=== PATIENT | female | born 1995 | race Caucasian/White ===

== ENCOUNTER 2025-10-18 01:56 | Emergency (ER) | payer BC, SELFPAY ==
[2025-10-18 02:01] VITALS: BP 142/85; PULSE 86; RESP 18; TEMP 36.4; O2SAT 100
--- NOTE | 2025-10-18 04:28 | PC.NURSE ---
This RN requested pain medication for patients pain, no new orders.
[2025-10-18 05:53] VITALS: RESP 14
[2025-10-18 05:58] VITALS: BP 116/80; PULSE 74; RESP 14; O2SAT 100
--- NOTE | 2025-10-18 08:05 | ED_ITS ---
HPI - Animal Bite General Chief Complaint: Animal Bite Stated Complaint: dog bite to L hand Time Seen by Provider: 10/18/25 07:07 Source: patient Mode of arrival: ambulatory Limitations: no limitations History of Present Illness HPI narrative: 30-year-old with a history of depression anxiety presently lactating here with a complains of dog bite to her left palm sustained about 0130 am , she states it a family pet ,immunized .Has no other complaints . MD complaint: animal bite Onset (ago): hour(s) (6) Animal: dog Description of animal: household pet Mechanism: bite Location - Extremities: Left: hand (thenar area) Pain description: dull Context: unprovoked Associated symptoms: none Related Data Patient tetanus UTD: Yes Allergies Allergy/AdvReac Type Severity Reaction Status Date / Time Penicillins Allergy Intermediate Hives Verified 10/18/25 02:04 Review of Systems Review of Systems: All systems reviewed & are unremarkable except as noted in HPI and below Constitutional: Constitutional: Reports no additional constitutional complaints Eyes: Eyes: Reports no additional eye complaints Cardiovascular: Cardiovascular: Reports no additional cardiovascular complaints Respiratory: Respiratory: Reports no additional respiratory complaints Gastrointestinal: Gastrointestinal: Reports no additional gastrointestinal complaints Musculoskeletal: Musculoskeletal: Reports as per HPI Integumentary/Breasts: Skin/Breast: Reports as per HPI Neurologic: Reports system reviewed and no additional complaints, except as documented Exam Narrative: GENERAL: Well-appearing, well-nourished, and in no acute distress. HEAD: Normocephalic, atraumatic. EYES: PERRLA and EOMI. ENT: Nares clear, no rhinorrhea or epistaxis. Mucous membranes moist. NECK: Supple. CHEST: Clear to auscultation. No respiratory distress. HEART: Regular rate and rhythm. No murmur heard. Normal peripheral pulses. EXTREMITIES: Normal range of motion. No edema. Puncture foley on the left thenar area ,no active bleeding. SKIN: Warm, dry, no rash. NEURO: No focal deficits. Alert and oriented x3. PSYCH: Normal mood and affect. Course Course Emergency Course: advised her to keep the wound clean and take antibiotic as prescribed. Vital Signs Vital signs: Vital Signs Temperature 36.4 C 10/18/25 02:01 Pulse Rate 86 10/18/25 02:01 Respiratory Rate 18 10/18/25 02:01 Blood Pressure 142/85 H 10/18/25 02:01 Pulse Oximetry 100 10/18/25 02:01 Oxygen Delivery Room Air 10/18/25 02:01 Temperature 36.4 C 10/18/25 02:01 Pulse Rate 74 10/18/25 05:58 Respiratory Rate 14 10/18/25 05:58 Blood Pressure 116/80 10/18/25 05:58 Pulse Oximetry 100 10/18/25 05:58 Oxygen Delivery Room Air 10/18/25 02:01 MDM Differential Diagnosis Differential Diagnosis: dog bite , scratch Discharge Plan Discharge Clinical Impression: Dog bite Patient Disposition: Home Condition: Stable Instructions: Antibiotic Form, Animal Bite (ED) Patient Language: Bulgarian Prescriptions: New ciprofloxacin HCl 500 mg tablet 500 mg PO Q12H Qty: 14 0RF clindamycin HCl [Cleocin HCl] 300 mg capsule 300 mg PO Q6H Qty: 28 0RF Follow-up/Referrals: PHYSICIAN NOT ON STAFF,NONSTAFF [Primary Care Provider] Yordy Tripp MD [Physician, Family Practice] Time of Disposition: 08:10
== END 2025-10-18 09:01 | disposition home or self-care (01) ==
PROVIDERS: Emergency Provider Family Medicine
DX: S61.452A Open bite of left hand, initial encounter (principal); F41.9 Anxiety disorder, unspecified; F32.A Depression, unspecified; W54.0XXA Bitten by dog, initial encounter
CPT/HCPCS: 99283